=== PATIENT | male | born 1975 | race Caucasian/White ===

== ENCOUNTER 2019-02-08 16:10 | Emergency (ER) | payer BC ==
[~2019-02-08 16:10] MED LIST: Sodium Chloride Irrig Solution 250 ML BOT ONE
[2019-02-08] MEDS ORDERED: Lidocaine 1% (PF) 30 ML VIAL ONE (16:20)
[2019-02-08] MEDS ORDERED: Adacel (T-DAP) 0.5 ML SYRINGE ONE (16:20)
[2019-02-08] MEDS ORDERED: Lidocaine 1% 20 ML MDV ONE (16:20)
[2019-02-08] MEDS ORDERED: Lidocaine 1% w/Epinephrine 1:100K 20 ML VIAL ONE (16:20)
--- NOTE | 2019-02-08 18:21 | CT ---
CT LEFT KNEE WITHOUT IV CONTRAST: 02/08/19 HISTORY: Left knee pain. Chainsaw left knee. FINDINGS/IMPRESSION: There is incomplete visualization of a laceration in the left distal thigh/upper knee anteriorly with small amount of soft tissue air. No fracture or dislocation is seen. No radiopaque foreign body is i dentified. POS: [facility]
[2019-02-08] MEDS ORDERED: Doxycycline 100 MG CAP ONE (18:39)
== END 2019-02-08 19:05 | disposition short-term general hospital (02) ==
LOC: MADERS 16:10
DX: S76.122A Laceration of left quadriceps muscle, fascia and tendon, initial encounter (principal); Z87.891 Personal history of nicotine dependence; W29.8XXA Contact with other powered hand tools and household machinery, initial encounter
CPT/HCPCS: 90471; 90715; J2001